=== PATIENT | female | born 1985 | race American Indian/Alaskan Native ===

== ENCOUNTER 2020-08-25 09:34 | Outpatient (CLI) | payer MEDICAID ==
--- NOTE | 2020-08-25 16:12 | Ultrasound Report ---
CLINICAL DATA: PELVIC AND PERINEAL PAIN TECHNICAL DATA: Ultrasound, pelvic (nonobstetric), real-time with image documentation; transabdominal and transvagina l imaging with Doppler was performed. FINDINGS: The uterus is of normal size and echogenicity. There are no uterine masses. Endometrial thickness is within normal limits. The right and left ovaries are of symmetric size and echogenicity. There are no ovarian or adnexal ma sses. 2.2 cm left ovarian cyst Doppler imaging demonstrates normal vascular flow to both ovaries. There is no significant quantity of free fluid dependently within the pelvis. IMPRESSION: Left ovarian cyst GUIDELINES FOR IMAGING OF OVARIAN--ADNEXAL CYST: WOMEN OF REPRODUCTIVE AGE: 1. Cysts <=3 cm: Normal physiologic findings; at the discretion of the interpreting physician whether or not to describe them in the imaging report; do not need follow-up. 2. Cysts >3 and <=5 cm: Should be described in the imaging report with a statement that they are almo st certainly benign; do not need follow-up. 3. Cysts >5 and <=7 cm: Should be described in the imaging report with a statement that they are almo st certainly benign; yearly follow-up with US recommended. 4. Cysts >7 cm: Since these may be difficult to assess completely with US, further imaging with magne tic resonance (MR) or surgical evaluation should be considered. POSTMENOPAUSAL WOMEN: 1. Cysts <=1 cm: Are clinically inconsequential; at the discretion of the interpreting physician whet her or not to describe them in the imaging report; do not need follow-up. 2. Cysts >1 and <=7 cm: Should be described in the imaging report with statement that they are almost certainly benign; yearly follow-up, at least initially, with US recommended. Some practices may opt to increase the lower size threshold for follow-up from 1 cm to as high as 3 cm. One may opt to salazar nue follow-up annually or to decrease the frequency of follow-up once stability or decrease in size h as been confirmed. Cysts in the larger end of this range should still generally be followed on a regu lar basis. 3. Cysts >7 cm: Since these may be difficult to assess completely with US, further imaging with MR or surgical evaluation should be considered. Signer Name: yBron Connelly MD Signed: 08/25/2020 4:07 PM Workstation Name: [id number]
== END 2020-08-25 09:35 | disposition home or self-care (01) ==
LOC: SPVIMAG 09:34
PROVIDERS: ATTEND Family Medicine
DX: N83.202 Unspecified ovarian cyst, left side (principal)
CPT/HCPCS: 76830; 76856

== ENCOUNTER 2021-02-24 11:34 | Outpatient (CLI) | payer MEDICAID ==
--- NOTE | 2021-02-24 13:07 | Ultrasound Report ---
ULTRASOUND BREAST LEFT LIMITED, 02/24/2021 CLINICAL INFORMATION / INDICATION: Patient is complaining of soreness involving the left nipple and l eft breast pain. TECHNIQUE: Targeted ultrasound evaluation was performed of the area of interest. COMPARISON: Prior left breast ultrasound 02/16/2015 FINDINGS: Sonographic evaluation of the left breast reveals a small oval smoothly marginated hypoechoic mass in the 11:00 position, 5 cm from nipple. This mass measures 7 x 3 mm and has an appearance most suggest bryson of a small fibroadenoma. No other findings are seen in the left breast. No abnormal findings are seen in the subareolar region of the breast to account for the left nipple soreness. IMPRESSION: Probably benign findings. There is an incidental hypoechoic solid-appearing nodule in the left breast at 11:00, most likely representing a small fibroadenoma. No other significant findings. A follow-up left breast ultrasound in 6 months is recommended to assess stability of this finding. Additionally, clinical correlation is recommended for complaint of left breast and left nipple pain. Follow up recommendation: Short term interval follow up BI-RADS Category 3: Probably Benign. Followup in 6 months. A normal or "negative" report should not preclude biopsy or follow-up of a clinically suspicious find ing. Signer Name: Mirna Thakkar MD Signed: 02/24/2021 1:03 PM Workstation Name: [employer])
== END 2021-02-24 11:35 | disposition home or self-care (01) ==
LOC: SPVWC 11:34
PROVIDERS: ATTEND Nurse Practitioner Primary Care
DX: N64.59 Other signs and symptoms in breast (principal)